=== PATIENT | female | born 1960 | race African-American/Black ===

== ENCOUNTER 2024-12-10 14:18 | Inpatient (IN) | payer MEDICAID ==
[~2024-12-10] VITALS: Ht 162.6 cm; Wt 86.2 kg
[~2024-12-10 14:18] MED LIST: AMLO10TA80 PO; ASPI-1160 PO; CLOP75TA15 PO; GABA-1180 MT; HYDR12.54 PO; HYDR50TA40 PO; LIP40 PO
[2024-12-10 16:21] LABS: BASOPHILS % 0.7 % (0.0-2.0); EOSINOPHILS % 1.1 % (0.0-5.0); HEMATOCRIT. 40.7 % (36.0-48.0); HEMOGLOBIN. 13.1 g/dL (12.0-16.0); LYMPHOCYTES % 32.0 % (20.0-50.0); MEAN PLATELET VOLUME 8.8 fl (7.4-10.4); MONOCYTES % 5.4 % (2.0-8.0); NEUTROPHILS % 60.8 % (40.0-76.0); PLATELET 291 x1000/uL (130-400); RED BLOOD CELL COUNT 5.04 mill/uL (4.2-5.4); RED CELL DISTRIBUTION WIDTH 15.0 % (11.6-14.6)
[2024-12-10 16:34] LABS: CREATININE 1.2 mg/dL (0.6-1.0); UREA NITROGEN BLOOD 17 mg/dL (9-23)
[2024-12-10 16:35] LABS: ETHANOL BLOOD < 10 mg/dL (<10)
[2024-12-10 16:36] LABS: TROPONIN I HIGH SENSITIVITY 10 ng/L (3.0-34)
[2024-12-10 18:59] LABS: TROPONIN I HIGH SENSITIVITY 11 ng/L (3.0-34)
[2024-12-10 20:00] VITALS: BP_SYST 126; BP_SYST 129; BP_DIAS 56; BP_DIAS 71; PULSE 102; PULSE 57; RESP 18; TEMP 36.5848; TEMP 36.7; O2SAT 97
[2024-12-10] MEDS ORDERED: LISI40TA13 MT (20:14)
[2024-12-11] VITALS: BP 142/63; PULSE 88; RESP 19; TEMP 36.6; O2SAT 98
[2024-12-11 07:40] LABS: CREATININE 1.1 mg/dL (0.6-1.0)
[2024-12-11 07:41] LABS: LDL CHOLESTEROL 127 mg/dL (5-100); TRIGLYCERIDE 107 mg/dL (0-150); UREA NITROGEN BLOOD 19 mg/dL (9-23)
[2024-12-11 07:58] LABS: PLATELET 284 x1000/uL (130-400); RED BLOOD CELL COUNT 4.75 mill/uL (4.2-5.4); RED CELL DISTRIBUTION WIDTH 14.9 % (11.6-14.6)
[2024-12-11 08:00] VITALS: BP 140/78; PULSE 81; RESP 16; TEMP 36.7; O2SAT 100
[2024-12-11] MEDS: LISINOPRIL 20MG TABLET PO SCH (08:31)
[2024-12-11] MEDS: CLOPIDOGREL 75MG TABLET PO SCH (08:31)
[2024-12-11] MEDS: ASPIRIN 81MG TABLET PO SCH (08:31)
[2024-12-11] MEDS: ACETAMINOPHEN 650MG/20.3ML UDC PO PRN (09:13)
[2024-12-11 12:00] VITALS: BP 149/82; PULSE 85; RESP 16; TEMP 36.6; O2SAT 98
[2024-12-11 16:00] VITALS: BP 167/83; PULSE 56; RESP 20; TEMP 36.1; O2SAT 96
[2024-12-11 20:00] VITALS: BP 146/89; PULSE 62; RESP 16; TEMP 36.6; O2SAT 99
[2024-12-11] MEDS ORDERED: ATORVASTATIN CALCIUM 40MG TABLET PO SCH (21:00)
[2024-12-11] MEDS: ATORVASTATIN CALCIUM 40MG TABLET PO SCH (21:12)
[2024-12-11] MEDS: ENOXAPARIN 30MG/0.3ML SYR SUBCUT SCH (21:12)
[2024-12-11 23:49] LABS: CLARITY URINE CLEAR (CLEAR); COLOR URINE YELLOW (YELLOW); SPECIFIC GRAVITY URINE 1.025 (1.005-1.030)
[2024-12-11 23:50] LABS: GLUCOSE URINE NEGATIVE (NEGATIVE); KETONES URINE TRACE (NEGATIVE); LEUKOCYTE ESTERASE URINE NEGATIVE (NEGATIVE); NITRITE URINE NEGATIVE (NEGATIVE); OCCULT BLOOD URINE NEGATIVE (NEGATIVE); PH URINE 6.0 (4.5-8.0); PROTEIN URINE TRACE (NEGATIVE); UROBILINOGEN URINE 1.0 E.U./dL (0.2-1.0)
[2024-12-12] VITALS (7 sets, daily range): BP systolic 126–178; BP diastolic 50–101; PULSE 47–66; RESP 18–20; TEMP 36.1–36.8; O2SAT 95–99
[2024-12-12 00:07] LABS: *AMPHETAMINES SCREEN URINE NEGATIVE (NEGATIVE); *BARBITURATES SCREEN URINE NEGATIVE (NEGATIVE); *BENZODIAZEPINES SCREEN URINE NEGATIVE (NEGATIVE); CANNABINOID URINE SCREEN PRESUMPTIVE POSITIVE (NEGATIVE); ECSTASY MDMA SCREEN URINE NEGATIVE (NEGATIVE); METHADONE URINE SCREEN NEGATIVE (NEGATIVE); OPIATES URINE SCREEN NEGATIVE (NEGATIVE); PHENCYCLIDINE URINE SCREEN NEGATIVE (NEGATIVE)
[2024-12-12 00:13] LABS: BACTERIA URINE NONE SEEN; RBC URINE NONE SEEN /hpf (0-2); SQUAMOUS EPITHELIAL CELL URINE RARE /lpf (RARE/1+); WBC URINE 0-2 /hpf (0-2)
[2024-12-12 01:13] LABS: *COCAINE SCREEN URINE NEGATIVE (NEGATIVE)
[2024-12-12] MEDS ORDERED: IOHEXOL-350 100 ML BOTTLE ONE (02:45)
[2024-12-12 11:40] LABS: TRIGLYCERIDE 112.0 mg/dL (0-150)
[2024-12-12 11:41] LABS: LDL CHOLESTEROL 130.0 mg/dL (5-100)
[2024-12-12] MEDS: AMLODIPINE 10MG TABLET PO SCH (18:38)
[2024-12-12] MEDS: HYDRALAZINE 20MG/ML VIAL IV PRN (18:44)
[2024-12-12] MEDS: HYDRALAZINE HCL 50MG TABLET PO SCH (21:40)
[2024-12-12] MEDS: ZOLPIDEM TARTRATE 5MG TABLET PO PRN (22:09)
[2024-12-13] VITALS: BP 130/67; PULSE 65; RESP 20; TEMP 36.5; O2SAT 99
[2024-12-13 04:00] VITALS: BP 156/78; PULSE 65; RESP 20; TEMP 36.5; O2SAT 97
[2024-12-13 08:00] VITALS: BP 132/71; PULSE 56; RESP 18; TEMP 35.7; O2SAT 99
[2024-12-13 12:00] VITALS: BP 120/65; PULSE 59; RESP 18; TEMP 36.7; O2SAT 99
[2024-12-13 16:00] VITALS: BP 154/83; PULSE 19; RESP 19; TEMP 36.6; O2SAT 98
[2024-12-13 20:00] VITALS: BP 170/93; PULSE 69; RESP 17; TEMP 36.6; O2SAT 97
[2024-12-14] VITALS: BP 115/65; PULSE 82; RESP 18; TEMP 36.4; O2SAT 94
[2024-12-14 04:00] VITALS: BP 129/72; PULSE 61; RESP 18; TEMP 36.1; O2SAT 91
[2024-12-14 08:00] VITALS: BP 116/65; PULSE 68; RESP 15; TEMP 36.2; O2SAT 97
[2024-12-14 12:00] VITALS: BP 127/69; PULSE 69; RESP 17; TEMP 36.3; O2SAT 97
[2024-12-14 16:00] VITALS: BP 124/85; PULSE 74; RESP 17; TEMP 36.3; O2SAT 99
[2024-12-14 20:00] VITALS: BP 139/88; PULSE 75; RESP 18; TEMP 36.7; O2SAT 98
[2024-12-14] MEDS: MAGNESIUM/ALUMINUM HYDROXIDE/SIMETHICONE 30ML UDC PO PRN (21:20)
[2024-12-15] VITALS: BP 112/63; PULSE 81; RESP 18; TEMP 35.9; O2SAT 96
[2024-12-15 04:00] VITALS: BP 98/59; PULSE 69; RESP 17; TEMP 36.6; O2SAT 94
[2024-12-15] MEDS: PANTOPRAZOLE 40MG DR TABLET PO SCH (06:16)
[2024-12-15 08:00] VITALS: BP 116/60; PULSE 73; RESP 18; TEMP 36.6; O2SAT 100
[2024-12-15 12:00] VITALS: BP 124/92; PULSE 60; RESP 18; TEMP 36.7; O2SAT 97
[2024-12-15 16:00] VITALS: BP 118/81; PULSE 87; RESP 18; TEMP 35.6; O2SAT 96
[2024-12-15 17:45] VITALS: BP 118/81; PULSE 87; TEMP 96.1; O2SAT 96
== END 2024-12-15 18:30 | disposition home health service (06) | DRG 45 ==
LOC: EDBEDREQ 15:19 → EDBEDREQTM 15:19 → ER 16:05 → EDBEDREQ 17:29 → EDBEDREQTM 17:29 → ENRESERV 18:43 → 8WST 19:34
PROVIDERS: ADMIT Internal Medicine; ATTEND Internal Medicine
DX: I63.9 Cerebral infarction, unspecified (principal); N17.9 Acute kidney failure, unspecified; I69.354 Hemiplegia and hemiparesis following cerebral infarction affecting left non-dominant side; R32 Unspecified urinary incontinence; N18.9 Chronic kidney disease, unspecified; E66.811 Obesity, class 1; E78.00 Pure hypercholesterolemia, unspecified; I12.9 Hypertensive chronic kidney disease with stage 1 through stage 4 chronic kidney disease, or unspecified chronic kidney disease; R13.10 Dysphagia, unspecified; I69.320 Aphasia following cerebral infarction; Z79.02 Long term (current) use of antithrombotics/antiplatelets; Z79.82 Long term (current) use of aspirin; Z87.891 Personal history of nicotine dependence; F41.9 Anxiety disorder, unspecified; Z68.32 Body mass index [BMI] 32.0-32.9, adult
CPT/HCPCS: 36415; 70496; 70498; 70551; 80048; 80061; 80305; 80320; 81003; 83036; 84443; 84484; 85025; 85027; 92610; 93306; 93970; 97116; 97162; 97166; 97530; 99285; A4606; J0360; J1650; Q9967; G0480